=== PATIENT | male | born 1935 | race Caucasian/White ===

== ENCOUNTER 2022-05-15 02:49 | Emergency (ER) | payer OTHER ==
[~2022-05-15] VITALS: Ht 170.2 cm; Wt 70.3 kg
[2022-05-15 03:15] LABS: BASOPHILS ABSOLUTE AUTO 0.04 K/mm3 (0.00-0.23); BASOPHILS PERCENT AUTO 1 % (0-2); EOSINOPHILS ABSOLUTE AUTO 0.07 K/mm3 (0.00-0.68); EOSINOPHILS PERCENT AUTO 1 % (0-6); Hematocrit 35.2 % (37.0-53.0); Hemoglobin 11.9 g/dL (13.5-17.5); IMMATURE GRAN ABSOLUTE AUTO 0.07 K/mm3 (0.00-0.10); IMMATURE GRAN PERCENT AUTO 1 % (0-1); LYMPHOCYTES ABSOLUTE AUTO 0.62 K/mm3 (0.84-5.20); LYMPHOCYTES PERCENT AUTO 10 % (21-46); MONOCYTES ABSOLUTE AUTO 0.71 K/mm3 (0.16-1.47); MONOCYTES PERCENT AUTO 11 % (4-13); Mean Corpuscular HGB 29.7 pg (26.0-34.0); Mean Corpuscular HGB Conc 33.8 g/dL (31.5-36.5); Mean Corpuscular Volume 88 fL (80-100); Mean Platelet Volume 9.2 fL (9.1-12.4); NEUTROPHILS PERCENT AUTO 77 % (41-73); Platelet Count 201 K/mm3 (150-400); RDW Coefficient Variation 15.6 % (11.7-14.2); RDW Standard Deviation 50.4 fL (35.1-46.3); Red Blood Cell Count 4.01 M/mm3 (4.30-5.90); White Blood Cell Count 6.51 K/mm3 (4.00-11.30)
[2022-05-15 03:28] LABS: Albumin, Blood 3.2 g/dL (3.4-5.0); Albumin/Globulin Ratio 1.1 (0.8-1.8); Bilirubin, Total 0.3 mg/dL (0.1-1.0); Bun/Creatinine Ratio 20.5 (12.0-20.0); Calcium, Blood 9.6 mg/dL (8.5-10.1); Creatinine, Blood 1.22 mg/dL (0.60-1.20); Globulin, Blood 2.9 g/dL (2.2-4.0); Potassium, Blood 3.9 mmol/L (3.5-5.5); Total Protein, Blood 6.1 g/dL (6.4-8.2)
[2022-05-15 03:34] LABS: Source, Urine Clean Catch
[2022-05-15 03:36] LABS: Bilirubin, Urine Neg (Neg); Blood, Urine Neg (Neg); Glucose Qualitative, Urine Neg (Neg); Ketones, Urine Neg (Neg); Leukocyte Esterase, Urine Neg (Neg); Nitrite, Urine Neg (Neg); Protein, Urine 1+ (Neg); Specific Gravity, Urine 1.015 (1.003-1.022); Urobilinogen, Urine NORM (Normal)
[2022-05-15 03:40] LABS: Appearance, Urine Clear (Clear); Color, Urine Yellow (P-Yellow)
[2022-05-15 03:56] LABS: Influenza A, PCR NEGATIVE (NEGATIVE); Influenza B, PCR NEGATIVE (NEGATIVE); Resp Syncytial Virus, PCR NEGATIVE (NEGATIVE); SARS-Cov-2 (COVID-19) PCR, MMC NEGATIVE (NEGATIVE)
[2022-05-15] MEDS ORDERED: MECL25 PO (06:21)
[2022-05-16] MEDS ORDERED: AMLO10 PO
[2022-05-16] MEDS ORDERED: Aspir 8181 MG PO
[2022-05-16] MEDS ORDERED: ERGO400 PO (00:01)
[2022-05-16] MEDS ORDERED: CYCL0.05OP BOTHEYES (00:01)
[2022-05-16] MEDS ORDERED: DICLOFENAC SOD100 G1 TOP (00:02)
[2022-05-16] MEDS ORDERED: DOXA2 PO (00:03)
[2022-05-16] MEDS ORDERED: DOCU100 PO (00:03)
[2022-05-16] MEDS ORDERED: LOSARTAN-HCTZ1 EACH PO (00:03)
[2022-05-16] MEDS ORDERED: NIAC500 PO (00:04)
[2022-05-16] MEDS ORDERED: METF500 PO (00:04)
[2022-05-16] MEDS ORDERED: MULVITA PO (00:04)
[2022-05-16] MEDS ORDERED: OCULAR LUBRICANT BOTHEYES (00:09)
[2022-05-16] MEDS ORDERED: DEXTRAN/GLYCER/HYPRO BOTHEYES (00:09)
[2022-05-16] MEDS ORDERED: XARELTO2.5 M1 PO (00:10)
[2022-05-16] MEDS ORDERED: SOLI5 PO (00:10)
[2022-05-16] MEDS ORDERED: OMEP20ER PO (00:10)
[2022-05-16] MEDS ORDERED: TUCKS1 EACH TOP (00:11)
== END 2022-05-15 06:38 | disposition home or self-care (01) ==
LOC: ER 02:49
PROVIDERS: Emergency Medicine
DX: R42 Dizziness and giddiness (principal); R50.9 Fever, unspecified; K21.9 Gastro-esophageal reflux disease without esophagitis; I10 Essential (primary) hypertension; E11.9 Type 2 diabetes mellitus without complications; Z20.822 Contact with and (suspected) exposure to COVID-19; Z79.899 Other long term (current) drug therapy
CPT/HCPCS: 0241U; 36415; 70450; 80053; 85025; 93005; 93010; A9270; J7030

== ENCOUNTER 2022-05-15 13:02 | Inpatient (IN) | payer OTHER ==
[~2022-05-15] VITALS: Ht 170.2 cm; Wt 70.0 kg
[~2022-05-15 13:02] MED LIST: MECL25 PO
[2022-05-15 16:17] LABS: CPK Creatine Kinase 240 U/L (39-308)
[2022-05-15 16:20] LABS: Creatine Kinase MB <1.0 ng/mL (0.0-3.6); Creatine Kinase MB Index Unable to Calculate (0.0-4.0)
[2022-05-16] MEDS ORDERED: AMLO10 PO
[2022-05-16] MEDS ORDERED: Aspir 8181 MG PO
[2022-05-16] MEDS ORDERED: ERGO400 PO (00:01)
[2022-05-16] MEDS ORDERED: CYCL0.05OP BOTHEYES (00:01)
[2022-05-16] MEDS ORDERED: DICLOFENAC SOD100 G1 TOP (00:02)
[2022-05-16] MEDS ORDERED: DOXA2 PO (00:03)
[2022-05-16] MEDS ORDERED: LOSARTAN-HCTZ1 EACH PO (00:03)
[2022-05-16] MEDS ORDERED: DOCU100 PO (00:03)
[2022-05-16] MEDS ORDERED: METF500 PO (00:04)
[2022-05-16] MEDS ORDERED: MULVITA PO (00:04)
[2022-05-16] MEDS ORDERED: NIAC500 PO (00:04)
[2022-05-16] MEDS ORDERED: OCULAR LUBRICANT BOTHEYES (00:09)
[2022-05-16] MEDS ORDERED: DEXTRAN/GLYCER/HYPRO BOTHEYES (00:09)
[2022-05-16] MEDS ORDERED: SOLI5 PO (00:10)
[2022-05-16] MEDS ORDERED: XARELTO2.5 M1 PO (00:10)
[2022-05-16] MEDS ORDERED: OMEP20ER PO (00:10)
[2022-05-16] MEDS ORDERED: TUCKS1 EACH TOP (00:11)
[2022-05-16 05:54] LABS: BASOPHILS ABSOLUTE AUTO 0.06 K/mm3 (0.00-0.23); BASOPHILS PERCENT AUTO 1 % (0-2); EOSINOPHILS ABSOLUTE AUTO 0.02 K/mm3 (0.00-0.68); EOSINOPHILS PERCENT AUTO 0 % (0-6); Hematocrit 33.8 % (37.0-53.0); Hemoglobin 11.3 g/dL (13.5-17.5); IMMATURE GRAN ABSOLUTE AUTO 0.06 K/mm3 (0.00-0.10); IMMATURE GRAN PERCENT AUTO 1 % (0-1); LYMPHOCYTES ABSOLUTE AUTO 0.59 K/mm3 (0.84-5.20); LYMPHOCYTES PERCENT AUTO 12 % (21-46); MONOCYTES ABSOLUTE AUTO 0.36 K/mm3 (0.16-1.47); MONOCYTES PERCENT AUTO 8 % (4-13); Mean Corpuscular HGB 29.1 pg (26.0-34.0); Mean Corpuscular HGB Conc 33.4 g/dL (31.5-36.5); Mean Corpuscular Volume 87 fL (80-100); Mean Platelet Volume 9.5 fL (9.1-12.4); NEUTROPHILS ABSOLUTE AUTO 3.65 K/mm3 (1.96-9.15); NEUTROPHILS PERCENT AUTO 77 % (41-73); Platelet Count 178 K/mm3 (150-400); RDW Coefficient Variation 15.7 % (11.7-14.2); RDW Standard Deviation 49.4 fL (35.1-46.3); Red Blood Cell Count 3.88 M/mm3 (4.30-5.90); White Blood Cell Count 4.74 K/mm3 (4.00-11.30)
--- NOTE | 2022-05-16 06:37 | NUR ---
A/OX3; POOR HISTORIAN, FORGETFUL. [place]. CALM/ COOPERATIVE. C/O HEADACHE; PRN TYLENOL ORDERED - EFFECTIVE PER PATIENT. WEAK AND NOT OOB FOR THIS RN; WALKS AND GOES BOWLING AT BASELINE (LAST WEEK PER REPORT). TELE: SR WITH HR IN 70's. RED BLANCHABLE COCCYX; REPOSITIONING ENCOURAGED. BED ALARM SET. CALL LIGHT IN REACH; ENCOURAGED TO MAKE NEEDS KNOWN.
[2022-05-16 08:03] LABS: Albumin, Blood 2.7 g/dL (3.4-5.0); Albumin/Globulin Ratio 1.1 (0.8-1.8); Bilirubin, Total 0.5 mg/dL (0.1-1.0); Bun/Creatinine Ratio 16.2 (12.0-20.0); Calcium, Blood 8.6 mg/dL (8.5-10.1); Creatinine, Blood 1.17 mg/dL (0.60-1.20); Globulin, Blood 2.5 g/dL (2.2-4.0); Potassium, Blood 3.1 mmol/L (3.5-5.5); Total Protein, Blood 5.2 g/dL (6.4-8.2)
--- NOTE | 2022-05-16 10:48 | NUR ---
RN NOTE MR GUILLEN IS ABLE TO ANSWER ALL ORIENTATION QUESTIONS, HE IS [place] FORTE. WHEN HIS FAMILY ARRIVED THEY SAID THAT HIS MENTAL STATUS IS BACK TO BASELINE. 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 A LOT OF GENERALISED WEAKNESS AND STILL C/O DIZZYNESS. HE HAS A HEADACHE THAT HE HAS HAD SINCE YESTERDAY THAT DECREASED WITH TYLENOL (STILL THERE). UNABLE TO LIFT HIS BODY UP TO GET HIGHER UP IN BED BY HIMSELF. SEEN BY PHYSICAL THERAPIST WHO RECOMMENDED 2 PERSON ASSIST TO CHAIR OR BSC. CONDOM CATH IN PLACE - PT SAID HE'S HAD DRIBBLING INCONTINENCE FOR 1.5YRS. TELE ON; SR. ONE EPISODE OF HTN RECORDED THIS AM, REPEAT BP IN NORMAL RANGE. BED LOW, CALL LIGHT IN REACH, BED ALARM ON.
--- NOTE | 2022-05-16 12:31 | NUR ---
RN NOTE PT C/O 04/05 POSTERIOR HEADACHE. DENIES NAUSEA, NO VISION CHANGES, STILL DIZZY PER PT. DR ORTIZ CALLED AND UPDATED. SHE IS PUTTING IN MEDICATION ORDERS.
--- NOTE | 2022-05-16 16:40 | NUR ---
SHIFT SUMMARY MR GUILLEN IS ABLE TO ANSWER ORIENTATION QUESTIONS AND IS BACK TO BASELINE MENTAL STATUS PER FAMILY TODAY. DID HAVE FRONTAL AND POSTERIOR HEADACHES WHICH HAVE DECREASED AFTER TYLENOL AND TRAMADOL. HE SAID HE FEELS MUCH BETTER. UP TO CHAIR WITH 2 PERSON ASSIST AND HAS WORKED WITH PT TODAY. ON TELEMETRY - NO CALLS FROM [employer] TEAMMATE. IVF COMPLETED AND PT TOLERATING PO FLUIDS. BED LOW, CALL LIGHT IN REACH, BED ALARM ON.
--- NOTE | 2022-05-16 18:51 | NUR ---
RN NOTE PT HAD ANOTHER POSTERIOR HEADACHE, DOWN TO 3/10 POST TYLENOL.
--- NOTE | 2022-05-16 20:27 | NUR ---
AWAKENED WHEN NURSE ENTERED ROOM. ALERT AND ORIENTED. CALL LIGHT IN REACH. DENNIED PAIN AND LOSS PF FEELING. WILL MONITOR
[2022-05-17 05:47] LABS: BASOPHILS ABSOLUTE AUTO 0.04 K/mm3 (0.00-0.23); BASOPHILS PERCENT AUTO 1 % (0-2); EOSINOPHILS ABSOLUTE AUTO 0.21 K/mm3 (0.00-0.68); EOSINOPHILS PERCENT AUTO 4 % (0-6); Hematocrit 34.8 % (37.0-53.0); Hemoglobin 11.4 g/dL (13.5-17.5); IMMATURE GRAN ABSOLUTE AUTO 0.06 K/mm3 (0.00-0.10); IMMATURE GRAN PERCENT AUTO 1 % (0-1); LYMPHOCYTES ABSOLUTE AUTO 1.17 K/mm3 (0.84-5.20); LYMPHOCYTES PERCENT AUTO 22 % (21-46); MONOCYTES ABSOLUTE AUTO 0.61 K/mm3 (0.16-1.47); MONOCYTES PERCENT AUTO 11 % (4-13); Mean Corpuscular HGB 28.7 pg (26.0-34.0); Mean Corpuscular HGB Conc 32.8 g/dL (31.5-36.5); Mean Corpuscular Volume 88 fL (80-100); Mean Platelet Volume 9.3 fL (9.1-12.4); NEUTROPHILS ABSOLUTE AUTO 3.29 K/mm3 (1.96-9.15); NEUTROPHILS PERCENT AUTO 61 % (41-73); Platelet Count 179 K/mm3 (150-400); RDW Coefficient Variation 15.9 % (11.7-14.2); RDW Standard Deviation 51.4 fL (35.1-46.3); Red Blood Cell Count 3.97 M/mm3 (4.30-5.90); White Blood Cell Count 5.38 K/mm3 (4.00-11.30)
[2022-05-17 06:11] LABS: Albumin, Blood 2.6 g/dL (3.4-5.0); Anion Gap 6 mmol/L (6-16); Blood Urea Nitrogen 19 mg/dL (8-24); Bun/Creatinine Ratio 16.1 (12.0-20.0); CO2, Blood 28 mmol/L (21-32); Calcium, Blood 8.9 mg/dL (8.5-10.1); Chloride, Blood 104 mmol/L (98-108); Creatinine, Blood 1.18 mg/dL (0.60-1.20); Glomerular Filtration Rate 61 (60-); Glucose, Blood 156 mg/dL (70-99); Phosphorus, Blood 2.5 mg/dL (2.5-4.9); Potassium, Blood 3.7 mmol/L (3.5-5.5); Sodium, Blood 138 mmol/L (136-145)
--- NOTE | 2022-05-17 07:35 | NUR ---
RECRUITMENT SPECIALIST SUMMARY HAS BEEN RESTING QUIETLY AT INTERVALS THROUGH NOCT. TOLERATING MEDS WELL. MED TELE REPORTED A FEW RUNS OF TRIGEMINY. SEE DOC FLOW SHEETS. ASYMPTOMATIC. DENIED PAIN. ALERT. NEURO CHECKS WNL. DENIED LOSS OF FEELING. CALL LIGHT IN REACH. WILL CONTINUE TO MONITOR
--- NOTE | 2022-05-17 15:14 | NUR ---
pt up in chair did well with physical therapy. Pt has mild headache he has had one for the past week. He feels sometimes a little unsteady. HE has been for the past few months having trouble with his hip and ambulation has been more diffficult. He is frustrated at not being active. Pt has had his medications adjusted for worsening incontinence. He is now also seeing a kidney doctor. He had seveal questions about what a kidney doctor does and manages. Pt gets most of his care throught the [place] he has a high service connection through hearing [employer], sounds like he also had a concussion. He is going to get some physical therapy throught the [facility]. pt has been having significant constipation. We reviewed his medicaions and hydration. He also has a lot of GERD. Gave him strtegies of liquids to draing and high fiber foods. We reviewed his risk for secondary infection and frequent handwashing before and after urination. Sent for a copy of his advance directive and updated his physician. Will try to follow up with advance directive.
--- NOTE | 2022-05-17 17:04 | NUR ---
SHIFT SUMMARY PT AWAKE AT START OF SHIFT, SITTING UPRIGHT IN BED WATCHING TV. PT SITTING UP TO EOB, ON HIS OWN, FOR BREAKFAST. UP TO CHAIR LATER WITH THERAPY. DR ORTIZ IN EARLY TO SEE PT AND DISCUSS PLAN OF CARE. PT TO WORK WITH PT/OT AND DISCHARGE HOME TOMORROW. PT UP TO BTHRM ON HIS OWN LATER IN DAY USING FWW. IN TO VISIT FOR A WHILE DURING THE DAY. PLEASANT AND CO-OP WITH CARE. DENIED FURTHER NEEDS AT THIS TIME. CALL LT IN REACH.
--- NOTE | 2022-05-18 04:13 | NUR ---
SHIFT SUMMARY ADMITTED FOR LEFT SIDED BRONCHITIS/PNEUMONIA. FULL CODE. HOPEFUL FOR DC HOME TODAY. IV ANTIB RX ARE SCHEDULED. TELEMETRY: NSR @ 94 BPM. ACHS CHEMSTICKS, LOW SS. ADA DIET. HE IS ON XARELTO. LUNGS ARE CLEAR. STANDBY ASSIST W/FWW - BRP. ON RA. PHYSICAL & OCCUPATIONAL THERAPIES ASSISTING. A&O X4.
[2022-05-18] MEDS ORDERED: VISBIOME 112.51 EACH PO (10:56)
[2022-05-18] MEDS ORDERED: AZIT250 PO (10:57)
[2022-05-18] MEDS ORDERED: CEPH500 PO (10:57)
[2022-05-18] MEDS ORDERED: CYCL0.05OP BOTHEYES (10:58)
--- NOTE | 2022-05-18 12:44 | NUR ---
PT AWAKE AT START OF SHIFT, WATCHING TV. UP TO EOB TO EAT BREAKFAST. DR ORTIZ IN TO SEE PT AND DISCUSS PLAN OF CARE. PT SHOWING LOW GRADE TEMP; RM WARM WITH DOOR SHUT. HEAT DECREASED AND DOOR OPEN. TYLENOL GIVEN PER EMAR AND DR ORTIZ'S ORDER. GUILLAUME SHOWING 98.8. D/C ORDERS PLACED. PT UP IN AND WALKING HALLS WITH THERAPY THIS AM. PT'S HERE LATER TO TAKE PT HOME. [facility]. D/C INSTRUCTIONS DISCUSSED WITH PT AND ; VERBALIZED UNDERSTANDING. PT ASSISTED OUT TO 'S CAR VIA W/C.
== END 2022-05-18 11:37 | disposition home or self-care (01) | DRG 871 ==
LOC: ER 13:02 → MEDS 20:52
PROVIDERS: Emergency Medicine; Family Medicine; ADMIT Internal Medicine
DX: A41.9 Sepsis, unspecified organism (principal); J18.0 Bronchopneumonia, unspecified organism; E87.1 Hypo-osmolality and hyponatremia; J40 Bronchitis, not specified as acute or chronic; E87.6 Hypokalemia; K21.9 Gastro-esophageal reflux disease without esophagitis; Z51.5 Encounter for palliative care; D63.1 Anemia in chronic kidney disease; I12.9 Hypertensive chronic kidney disease with stage 1 through stage 4 chronic kidney disease, or unspecified chronic kidney disease; E11.22 Type 2 diabetes mellitus with diabetic chronic kidney disease; N18.2 Chronic kidney disease, stage 2 (mild); R26.2 Difficulty in walking, not elsewhere classified; Z98.890 Other specified postprocedural states; Z20.822 Contact with and (suspected) exposure to COVID-19; Z79.899 Other long term (current) drug therapy
CPT/HCPCS: 36415; 70551; 71045; 74177; 80053; 80069; 82550; 82553; 82947; 83605; 83880; 84145; 84484; 85025; 87040; 93005; 93010; 96361; 96365; 96367; 96372-59; 97110; 97112; 97116; 97161; 97166; 97530; 97535; 99285-25; A9270; J0456; J0696; J1650; J7030; J7050; Q9967

== ENCOUNTER 2023-08-22 05:49 | Day surgery (SDC) | payer OTHER ==
[2023-08-22] VITALS (16 sets, daily range): BP systolic 109–170; BP diastolic 48–118
[~2023-08-22] VITALS: Ht 165.1 cm; Wt 68.8 kg
[~2023-08-22 05:49] MED LIST changes: +ALLO300 PO; +AMLO10 PO; +AMLO5 PO; +AZIT250 PO; +Aspir 8181 MG PO; +CEPH500 PO; +CYCL0.05OP BOTHEYES; +CYCL100 PO; +DEXTRAN/GLYCER/HYPRO BOTHEYES; +DICLOFENAC SOD100 G1 TOP; +DOCU100 PO; +DOXA2 PO; +Docusate Sodiu250 MG PO; +ERGO400 PO; +LACT PO; +LOSARTAN-HCTZ1 EACH PO; +METF500 PO; +MULVITA PO; +NIAC500 PO; +OCULAR LUBRICANT BOTHEYES; +OMEP20ER PO; +SOLI5; +SOLI5 PO; +TEARS NATURAL BOTHEYES; +TUCKS1 EACH TOP; +VISBIOME 112.51 EACH PO; +VITAMIN D310 MC1 PO; +Voltaren100 GM TOP; +XARELTO2.5 M1 PO; +XARELTO20 MG PO
[2023-08-22] MEDS ORDERED: Chlorhexidine Mouth Care 15 ML UDC MT SCH (06:20)
[2023-08-22] MEDS ORDERED: Lactated Ringer's 1,000 ML IV SCH ×2 (06:20→08:15)
[2023-08-22] MEDS ORDERED: NS IV SCH (06:20)
[2023-08-22] MEDS ORDERED: Ropivacaine 0.5% HCl/Pf 67.75 MG,EPINEPHrine HCL 0.25 MG,Ketorolac Tromethamine 15 MG,C... INFIL SCH (06:20)
[2023-08-22] MEDS ORDERED: CeFAZolin Sodium 2,000 MG in NS 50 ML IV SCH ×2 (06:20→15:40)
[2023-08-22] MEDS ORDERED: TRANEXAMIC ACID IV SCH (06:20)
[2023-08-22] MEDS ORDERED: OxyCODONE HCL 10 MG TABCR PO SCH (06:20)
[2023-08-22] MEDS ORDERED: CYCL0.05OP BOTHEYES (06:29)
[2023-08-22] MEDS ORDERED: DICLOFENAC SOD100 GM TP (06:29)
[2023-08-22] MEDS ORDERED: DOXA2 PO (06:30)
[2023-08-22] MEDS ORDERED: KETO.5OPSO BOTHEYES (06:31)
[2023-08-22] MEDS ORDERED: EZET10 PO (06:31)
[2023-08-22] MEDS ORDERED: LEVE500 PO (06:33)
[2023-08-22] MEDS ORDERED: MULVITA PO (06:33)
[2023-08-22] MEDS ORDERED: ARTIFICIAL TEA1 EAC1 (06:34)
[2023-08-22] MEDS ORDERED: GENTEAL TEARS SE8 ML (06:35)
[2023-08-22] MEDS ORDERED: MIRALAX17 GM PO (06:35)
[2023-08-22] MEDS ORDERED: GENTEAL TEARS S10 GM OP (06:35)
[2023-08-22] MEDS ORDERED: SULFAMETHOXAZOL20 M1 PO (06:36)
[2023-08-22] MEDS ORDERED: SOLI5 (06:36)
[2023-08-22] MEDS ORDERED: PREPARATION H1 EAC2 TP (06:37)
[2023-08-22] MEDS ORDERED: propofoL 0 ML IV ONE (07:04)
[2023-08-22] MEDS ORDERED: FentaNYL Citrate 50 MCG/ML 2 ML Injection ONE ×2 (07:04→09:43)
[2023-08-22] MEDS ORDERED: Phenylephrine HCl 100 MCG/ML-NS 10MLSYR (1MG/10ML) ONE (07:05)
[2023-08-22] MEDS ORDERED: Dexamethasone Sod Phos 10 MG/ML 1ML VIAL ONE (07:05)
[2023-08-22] MEDS ORDERED: Ondansetron HCl 2 MG / ML 2ML Vial ONE (07:05)
[2023-08-22] MEDS ORDERED: Etomidate 2MG / ML 10ML Vial ONE (07:34)
--- NOTE | 2023-08-22 07:34 | NUR ---
[address] PT [address]IES REVIEWED WITH DR VELOZ. PT MEDICATIONS REVIEWED WITH DR ROBLEDO. PT AND FAMILY BROUGHT LIST OF MEDICATIONS WHICH WERE UPDATED INTO SYSTEM, BUT PT AND FAMILY ARE POOR HISTORIANS ON WHEN MEDICATIONS WERE LAST TAKEN. Ambulatory in Day Surgery. History, Chart, Medications and Allergies reviewed before start of procedure. Lungs clear T/O to Auscultation. Patient confirms NPO status and agrees with scheduled surgery. Pre-Op teaching done. Pt verbalizes understanding. PT BELONGINGS PLACED UNDERNEATH GURNEY FOR SAFEKEEPING.
[2023-08-22] MEDS ORDERED: propofoL 20 ML IV ONE (07:40)
[2023-08-22] MEDS ORDERED: Metoclopramide HCl 5MG / ML 2ML Vial ONE (08:03)
[2023-08-22] MEDS ORDERED: FLU VACC QS2023-24(6MOS UP)/PF 60 MCG/0.5 ML SYRINGE IM SCH (08:10)
[2023-08-22] MEDS ORDERED: DiphenhydrAMINE HCL 25 MG Cap PO PRN (08:10)
[2023-08-22] MEDS ORDERED: HYDROmorphone HCl/Pf 1MG SYR IV PRN (08:15)
[2023-08-22] MEDS ORDERED: Metoclopramide HCl 5MG / ML 2ML Vial IV PRN (08:15)
[2023-08-22] MEDS ORDERED: Ondansetron HCl 2 MG / ML 2ML Vial IV PRN (08:15)
[2023-08-22] MEDS ORDERED: Magnesium Hydroxide Conc 10 ML UDC PO PRN (08:15)
[2023-08-22] MEDS ORDERED: OxyCODONE HCL 5 MG TAB PO PRN ×2 (08:15→08:20)
[2023-08-22] MEDS ORDERED: Bisacodyl 10 MG Supp PR PRN (08:20)
[2023-08-22] MEDS ORDERED: Prochlorperazine Edisylate 10 mg Vial IV PRN (08:20)
[2023-08-22] MEDS ORDERED: Promethazine HCl 25 MG Tab PO PRN (08:20)
[2023-08-22] MEDS ORDERED: HYDROmorphone HCl/Pf 1MG SYR ONE (08:28)
[2023-08-22] MEDS ORDERED: [UNRECOGNIZED DRUG - OTHER] BOTHEYES PRN (08:40)
[2023-08-22] MEDS ORDERED: Ketorolac 0.5% Opth Soln BTL BOTHEYES SCH (09:00)
[2023-08-22] MEDS ORDERED: Glycopyrrolate 0.2 MG/ML 5ML VIAL ONE (09:31)
[2023-08-22] MEDS ORDERED: Rocuronium Bromide 10 MG/ML 5ML Injection IV ONE (09:31)
[2023-08-22] MEDS ORDERED: Ketorolac Tromethamine 15mg Vial IV SCH (12:00)
[2023-08-22] MEDS ORDERED: MetFORMIN HCl 500 mg PO SCH (17:00)
--- NOTE | 2023-08-22 18:04 | NUR ---
SHIFT SUMMARY PT A&OX4, VSS/RA/BLACKFEET(AIDS AT HOME), AISSATOU PO, VOIDING, AMB 1 PP MIN ASSIST W/FWW GB/UP TO CHAIR/PHYSICAL THERAPY EVAL'D, PAIN MANAGED WITH TORADOL. WILL REPORT TO ONCOMING NOC RN.
[2023-08-22] MEDS ORDERED: LevETIRAcetam 500 MG Tab PO SCH (21:00)
[2023-08-22] MEDS ORDERED: Docusate Sodium 100 MG Cap PO SCH (21:00)
[2023-08-22] MEDS ORDERED: EYE BOTHEYES SCH (21:00)
[2023-08-22] MEDS ORDERED: Doxazosin Mesylate 2 MG Tab PO SCH (21:00)
[2023-08-22] MEDS ORDERED: CYCLOSPORINE 0.05% BOTHEYES SCH (21:00)
[2023-08-23 03:30] VITALS: BP 109/53
[2023-08-23 05:19] LABS: BASOPHILS ABSOLUTE AUTO 0.02 K/mm3 (0.00-0.23); BASOPHILS PERCENT AUTO 0 % (0-2); EOSINOPHILS PERCENT AUTO 0 % (0-6); Hemoglobin 8.5 g/dL (13.5-17.5); IMMATURE GRAN ABSOLUTE AUTO 0.05 K/mm3 (0.00-0.10); IMMATURE GRAN PERCENT AUTO 0 % (0-1); LYMPHOCYTES ABSOLUTE AUTO 0.87 K/mm3 (0.84-5.20); LYMPHOCYTES PERCENT AUTO 6 % (21-46); MONOCYTES ABSOLUTE AUTO 1.38 K/mm3 (0.16-1.47); MONOCYTES PERCENT AUTO 9 % (4-13); Mean Corpuscular HGB 29.2 pg (26.0-34.0); Mean Corpuscular HGB Conc 32.7 g/dL (31.5-36.5); Mean Corpuscular Volume 89 fL (80-100); Mean Platelet Volume 9.2 fL (9.1-12.4); NEUTROPHILS PERCENT AUTO 85 % (41-73); Platelet Count 178 K/mm3 (150-400); RDW Coefficient Variation 15.4 % (11.7-14.2); RDW Standard Deviation 50.4 fL (35.1-46.3); Red Blood Cell Count 2.91 M/mm3 (4.30-5.90); White Blood Cell Count 15.62 K/mm3 (4.00-11.30)
--- NOTE | 2023-08-23 05:39 | NUR ---
SHIFT SUMMARY A&OX4, RA, VSS, PAIN WNL, SBA W FWW, TOLERATING PO, VOIDING WNL, DRSG C/D/I, POLAR PACK/SCD'S IN PLACE, RESTING QUIETLY IN BED, CALL LIGHT IN REACH
[2023-08-23] MEDS ORDERED: Omeprazole 20 MG CapCR PO SCH (06:00)
[2023-08-23 06:03] LABS: Bun/Creatinine Ratio 15.5 (12.0-20.0); Calcium, Blood 9.1 mg/dL (8.5-10.1); Creatinine, Blood 1.74 mg/dL (0.60-1.20); Magnesium, Blood 1.9 mg/dL (1.6-2.4); Potassium, Blood 3.9 mmol/L (3.5-5.5)
[2023-08-23 07:09] VITALS: BP 123/59
[2023-08-23] MEDS ORDERED: Polyethylene Glycol 3350 17 gm PO SCH (09:00)
[2023-08-23] MEDS ORDERED: Allopurinol 300 MG Tab PO SCH (09:00)
[2023-08-23] MEDS ORDERED: Cholecalciferol 1000 Unit Tablet (=25MCG) PO SCH (09:00)
[2023-08-23] MEDS ORDERED: Ezetimibe 10 MG Tab PO SCH (09:00)
[2023-08-23] MEDS ORDERED: Trospium Chloride 20 MG Tab PO SCH (09:00)
[2023-08-23] MEDS ORDERED: AmLODIPine Besylate 5 MG Tab PO SCH (09:00)
[2023-08-23] MEDS ORDERED: Losartan/HCTZ 50-12.5 TAB PO SCH (09:00)
[2023-08-23 09:45] VITALS: BP 117/52
--- NOTE | 2023-08-23 09:56 | NUR ---
08/23/23 0956 Milagros Villaseñor VERIFICATIONS: EDIT CHART.
[2023-08-23] MEDS ORDERED: Rivaroxaban 10 MG Tab PO SCH (10:00)
--- NOTE | 2023-08-23 10:19 | NUR ---
DISCHARGED PLACED AQUACEL OVER EXOFIN PRIOR TO DC. PROVIDED AQUACEL DRESSINGS FOR PT TO TAKE HOME. DC'D IV, CATHETER INTACT. VSS. REVIEWED DC INSTRUCTIONS W/PT; VERBALIZED UNDERSTANDING. PT LEFT UNIT IN WC W/POSSESSIONS, POLAR PACK, DC PAPERWORK IN HAND, ACCOMPANIED BY SPOUSE.
== END 2023-08-23 10:00 | disposition home or self-care (01) ==
LOC: ORSCMMR 05:49 → ORD 07:30 → SURS 10:20 → ORSCMMR 08-23 10:00
PROVIDERS: Orthopaedic Surgery
PROC: 0SRB0JA Replacement of Left Hip Joint with Synthetic Substitute, Uncemented, Open Approach (ICD-10-PCS; principal; 2023-08-22 07:30)
DX: M16.12 Unilateral primary osteoarthritis, left hip (principal); E11.22 Type 2 diabetes mellitus with diabetic chronic kidney disease; I12.9 Hypertensive chronic kidney disease with stage 1 through stage 4 chronic kidney disease, or unspecified chronic kidney disease; N18.9 Chronic kidney disease, unspecified; I48.91 Unspecified atrial fibrillation; Z79.01 Long term (current) use of anticoagulants; E78.5 Hyperlipidemia, unspecified; Z87.891 Personal history of nicotine dependence; Z79.899 Other long term (current) drug therapy; Z86.73 Personal history of transient ischemic attack (TIA), and cerebral infarction without residual deficits; Z79.84 Long term (current) use of oral hypoglycemic drugs
CPT/HCPCS: 36415; 72170; 80048; 82947; 83735; 85025; 97110; 97116; 97162; 97530; A9270; C1713; C1776; J0171; J0690; J0735; J1100; J1170; J1885; J2371; J2405; J2704; J2765; J2795; J3010; J7120

== ENCOUNTER 2024-12-27 07:08 | Day surgery (SDC) | payer OTHER ==
[2024-12-27] VITALS (11 sets, daily range): BP systolic 150–197; BP diastolic 63–85
[~2024-12-27] VITALS: Ht 167.6 cm; Wt 66.0 kg
[~2024-12-27 07:08] MED LIST changes: +ARTIFICIAL TEA1 EAC1; +Acetaminophen650 M1 PO; +CYCLOSPORINE PO; +DICLOFENAC SOD100 GM TP; +EFUDEX40 GM TOP; +ELIQUIS5 M2 PO; +EZET10 PO; +GENTEAL TEARS S10 GM OP; +GENTEAL TEARS SE8 ML; +KETO.5OPSO BOTHEYES; +LEVE500 PO; +LIDO700A20 TOP; +MIRALAX17 GM PO; +PREPARATION H1 EAC2 TP; +Retin-A20 GM TP; +SULFAMETHOXAZOL20 M1 PO; +Triamcinolone A15 G2 TOP
[2024-12-27] MEDS ORDERED: NS 500 ML IV ONE (07:11)
[2024-12-27] MEDS ORDERED: Nitroglycerin 2 MG/20 ML BTL ONE (07:11)
[2024-12-27] MEDS ORDERED: Heparin Sodium 1000 Units/ML 10ML MDV ONE ×2 (07:11→07:49)
[2024-12-27] MEDS ORDERED: NS 1,000 ML IV ONE ×2 (07:11→07:49)
[2024-12-27] MEDS ORDERED: Midazolam HCl 1MG / ML 2ML Vial ONE ×2 (08:33→08:51)
[2024-12-27] MEDS ORDERED: FentaNYL Citrate 50 MCG/ML 2 ML Injection ONE ×2 (08:33→09:11)
--- NOTE | 2024-12-27 13:00 | NUR ---
PATIENT RETURNED EARLIER FROM [facility] [facility], ARRIVED LATER AT BEDSIDE, SITE INTACT TO LEFT FEMORAL, DISCUSSED STENT PLACEMENT WITH PATIENT/, AND PLAN FOR D/C. D/C INSTRUCTIONS DISCUSSED, MEDICATIONS LIST AND HOLDING METFORMIN ALONG WITH MONITORING SITE AND RESUMING MEDICATIONS AND FOLLOWING UP WITH PROVIDER, NO QUESTIONS OR CONCERNS, DRESSED, IV REMOVED, LEFT VIA WHEELCHAIR WITH AT 1300, CALL OR RETURN IF CONCERNS.
== END 2024-12-27 13:00 | disposition home or self-care (01) ==
LOC: MHTC 07:08
DX: E11.51 Type 2 diabetes mellitus with diabetic peripheral angiopathy without gangrene (principal); I70.221 Atherosclerosis of native arteries of extremities with rest pain, right leg; I48.21 Permanent atrial fibrillation; I10 Essential (primary) hypertension; E78.5 Hyperlipidemia, unspecified; K21.9 Gastro-esophageal reflux disease without esophagitis; Z79.01 Long term (current) use of anticoagulants; Z79.899 Other long term (current) drug therapy; Z87.891 Personal history of nicotine dependence; Z88.8 Allergy status to other drugs, medicaments and biological substances
CPT/HCPCS: 37226; 37228; 75716; 75774; 76937; 82947; 93005; 93010; 99152; 99153; C1725; C1760; C1769; C1874; C1887; C1894; C2623; J1644; J2250; J3010; J7030; J7050; Q9967

== ENCOUNTER 2025-01-20 07:01 | Observation (INO) | payer OTHER ==
[~2025-01-20] VITALS: Ht 165.1 cm; Wt 71.4 kg
[2025-01-20 07:37] LABS: BASOPHILS ABSOLUTE AUTO 0.03 K/mm3 (0.00-0.23); BASOPHILS PERCENT AUTO 0 % (0-2); EOSINOPHILS ABSOLUTE AUTO 0.00 K/mm3 (0.00-0.68); EOSINOPHILS PERCENT AUTO 0 % (0-6); Hematocrit 30.3 % (37.0-53.0); Hemoglobin 9.7 g/dL (13.5-17.5); IMMATURE GRAN ABSOLUTE AUTO 0.11 K/mm3 (0.00-0.10); IMMATURE GRAN PERCENT AUTO 1 % (0-1); LYMPHOCYTES ABSOLUTE AUTO 1.09 K/mm3 (0.84-5.20); LYMPHOCYTES PERCENT AUTO 7 % (21-46); MONOCYTES ABSOLUTE AUTO 1.57 K/mm3 (0.16-1.47); MONOCYTES PERCENT AUTO 10 % (4-13); Mean Corpuscular HGB Conc 32.0 g/dL (31.5-36.5); Mean Corpuscular Volume 93 fL (80-100); NEUTROPHILS ABSOLUTE AUTO 13.63 K/mm3 (1.96-9.15); NEUTROPHILS PERCENT AUTO 83 % (41-73); NRBC ABSOLUTE 0.00 K/mm3 (0.00-0.02); NRBC Auto 0.0 /100 WBC (0.0-0.2); Platelet Count 186 K/mm3 (150-400); RDW Coefficient Variation 15.2 % (11.7-14.2); RDW Standard Deviation 52.0 fL (35.1-46.3)
[2025-01-20] MEDS ORDERED: NS 1,000 ML IV SCH (07:45)
[2025-01-20] MEDS ORDERED: CefTRIAXone Sodium 1,000 MG in NS 100 ML IV ONE (07:45)
[2025-01-20 07:54] LABS: Alanine Aminotransfer (ALT/SGP 31.0 U/L (12-78); Albumin, Blood 3.0 g/dL (3.4-5.0); Albumin/Globulin Ratio 0.8 (0.8-1.8); Anion Gap 9.0 mmol/L (3-11); Aspartate Aminotrans (AST/SGOT 28.0 U/L (12-37); Bilirubin, Total 0.7 mg/dL (0.1-1.0); Blood Urea Nitrogen 33.0 mg/dL (8-24); CO2, Blood 25.0 mmol/L (21-32); Calcium, Blood 9.2 mg/dL (8.5-10.1); Chloride, Blood 106.0 mmol/L (98-108); Creatinine, Blood 1.45 mg/dL (0.60-1.20); Globulin, Blood 3.6 g/dL (2.2-4.0); Glucose, Blood 144.0 mg/dL (70-99); Potassium, Blood 3.3 mmol/L (3.5-5.5); Sodium, Blood 137.0 mmol/L (136-145); Total Protein, Blood 6.6 g/dL (6.4-8.2)
[2025-01-20 08:05] LABS: Alanine Aminotransfer (ALT/SGP 29.0 U/L (12-78); Albumin, Blood 2.7 g/dL (3.4-5.0); Albumin/Globulin Ratio 0.8 (0.8-1.8); Aspartate Aminotrans (AST/SGOT 26.0 U/L (12-37); Bilirubin, Direct 0.2 mg/dL (0.0-0.3); Bilirubin, Indirect 0.3 mg/dL (0.1-0.7); Bilirubin, Total 0.5 mg/dL (0.1-1.0); Globulin, Blood 3.2 g/dL (2.2-4.0); Magnesium, Blood 1.4 mg/dL (1.6-2.4); Phosphorus, Blood 1.6 mg/dL (2.5-4.9); Total Protein, Blood 5.9 g/dL (6.4-8.2)
[2025-01-20 08:19] LABS: Source, Urine Voided
[2025-01-20 08:22] LABS: Bilirubin, Urine Neg (Neg); Color, Urine Yellow (P-Yellow); Glucose Qualitative, Urine Neg (Neg); Ketones, Urine Neg (Neg); Leukocyte Esterase, Urine 1+ (Neg); Protein, Urine 2+ (Neg); Specific Gravity, Urine 1.020 (1.003-1.022); Urobilinogen, Urine 1+ (Normal)
[2025-01-20 08:36] LABS: Red Blood Cells, Urine 0-2 /hpf (0-2)
[2025-01-20 09:09] LABS: Influenza A, PCR NEGATIVE (NEGATIVE); Influenza B, PCR NEGATIVE (NEGATIVE); Resp Syncytial Virus, PCR NEGATIVE (NEGATIVE); SARS-Cov-2 (COVID-19) PCR, MMC NEGATIVE (NEGATIVE)
[2025-01-20] MEDS ORDERED: Magnesium Sulf 2 GM/Water 50ML 50 ML IV ONE (12:25)
[2025-01-20 13:43] VITALS: BP 128/61
[2025-01-20] MEDS ORDERED: NS 250 ML IV PRN (15:20)
[2025-01-20 15:25] VITALS: BP 145/63
[2025-01-20] MEDS ORDERED: ALLO300 PO (16:35)
[2025-01-20] MEDS ORDERED: CYCLOSPORINE1 EACH BOTHEYES (16:37)
[2025-01-20] MEDS ORDERED: LACT PO (16:42)
[2025-01-20] MEDS ORDERED: KETO.5OPSO BOTHEYES (16:42)
[2025-01-20] MEDS ORDERED: LIDO5TO TOP (16:43)
[2025-01-20] MEDS ORDERED: Hair, Skin & N1 EACH PO (16:45)
[2025-01-20] MEDS ORDERED: PREPARATION H1 EAC2 PR (16:49)
[2025-01-20] MEDS ORDERED: ARTIFICIAL TEA1 EAC1 BOTHEYES (16:50)
--- NOTE | 2025-01-20 17:16 | NUR ---
ADMIT NOTE PATIENT BROUGHT UP FROM ER VIA GURNEY. ABLE TO TRANSFER TO BED STAND-BY. MED REC BROUGHT IN BY FAMILY AND COMPLETED. IV MAG AND PO MAG RICARDO. PT A/OX4. ROOM AIR. ABLE TO MAKE NEEDS KNOWN. DR. VELASCO ORDERED TO DC PATRICK THAT WAS PLACED IN ER AND BLADDER SCAN 4 HOURS AFTER. BLADDER SCAN TIME DUE AT 1999. IV TO LAC PATENT. NO APPARENT SKIN ISSUES APART FROM SOMES SMALL SCABS AND BRUISING. PT/OT EVAL PENDING.
[2025-01-20] MEDS ORDERED: Insulin Human Lispro 100 Units/ML 3ML Syringe SC SCH (18:00)
[2025-01-20 19:42] VITALS: BP 128/56
[2025-01-20] MEDS ORDERED: Doxazosin Mesylate 8 MG TAB PO SCH (21:00)
[2025-01-20] MEDS ORDERED: Trimethoprim/Sulfamethoxazole DS Tab PO SCH (21:00)
--- NOTE | 2025-01-21 04:27 | NUR ---
SHIFT SUMMARY: PT AOX4 IND WITH URINAL, HASNT GOTTEN UP THIS EVENING BUT IS ABLE TO REPOSITION SELF IN BED. PT TOLERATING MEDICATIONS WELL. CBGS HAVE BEEN STABLE THIS EVENING DESPITE BEING REGULAR DIET. IS ABLE TO VOID WITHOUT ISSUE HAVING SEVERAL VOIDS IN THE URINAL OVERNIGHT. CALLS APPRORPIATELY AND IS ABLE TO MAKE NEEDS KNOWN. STATES TO BE FEELING MUCH BETTER THAN ON ADMISSION. PT IN BED RESTING, BED IN LOWEST POSITION, CALL LIGHT IN REACH. CONTINUING CARE.
[2025-01-21 04:28] VITALS: BP 130/58
[2025-01-21 05:48] LABS: BASOPHILS ABSOLUTE AUTO 0.04 K/mm3 (0.00-0.23); BASOPHILS PERCENT AUTO 0 % (0-2); EOSINOPHILS ABSOLUTE AUTO 0.03 K/mm3 (0.00-0.68); EOSINOPHILS PERCENT AUTO 0 % (0-6); Hematocrit 29.1 % (37.0-53.0); Hemoglobin 9.4 g/dL (13.5-17.5); IMMATURE GRAN ABSOLUTE AUTO 0.05 K/mm3 (0.00-0.10); IMMATURE GRAN PERCENT AUTO 1 % (0-1); LYMPHOCYTES ABSOLUTE AUTO 1.70 K/mm3 (0.84-5.20); LYMPHOCYTES PERCENT AUTO 16 % (21-46); MONOCYTES ABSOLUTE AUTO 1.13 K/mm3 (0.16-1.47); MONOCYTES PERCENT AUTO 11 % (4-13); Mean Corpuscular HGB Conc 32.3 g/dL (31.5-36.5); Mean Corpuscular Volume 93 fL (80-100); NEUTROPHILS ABSOLUTE AUTO 7.61 K/mm3 (1.96-9.15); NEUTROPHILS PERCENT AUTO 72 % (41-73); NRBC ABSOLUTE 0.00 K/mm3 (0.00-0.02); NRBC Auto 0.0 /100 WBC (0.0-0.2); Platelet Count 195 K/mm3 (150-400); RDW Coefficient Variation 15.3 % (11.7-14.2); RDW Standard Deviation 52.3 fL (35.1-46.3)
[2025-01-21 06:04] LABS: Alanine Aminotransfer (ALT/SGP 33.0 U/L (12-78); Albumin, Blood 2.6 g/dL (3.4-5.0); Albumin/Globulin Ratio 0.8 (0.8-1.8); Anion Gap 8.0 mmol/L (3-11); Aspartate Aminotrans (AST/SGOT 28.0 U/L (12-37); Bilirubin, Total 0.5 mg/dL (0.1-1.0); Blood Urea Nitrogen 24.0 mg/dL (8-24); CO2, Blood 26.0 mmol/L (21-32); Calcium, Blood 9.6 mg/dL (8.5-10.1); Chloride, Blood 107.0 mmol/L (98-108); Creatinine, Blood 1.26 mg/dL (0.60-1.20); Globulin, Blood 3.3 g/dL (2.2-4.0); Glucose, Blood 121.0 mg/dL (70-99); Magnesium, Blood 2.3 mg/dL (1.6-2.4); Potassium, Blood 3.7 mmol/L (3.5-5.5); Sodium, Blood 137.0 mmol/L (136-145); Total Protein, Blood 5.9 g/dL (6.4-8.2)
[2025-01-21 07:38] VITALS: BP 134/65
[2025-01-21] MEDS ORDERED: Enoxaparin 40 MG/0.4 ML SYR SC SCH (09:00)
[2025-01-21] MEDS ORDERED: Polyethylene Glycol 3350 17 gm PO ONE (11:00)
[2025-01-21] MEDS ORDERED: Polyethylene Glycol 3350 17 gm PO PRN (11:00)
[2025-01-21] MEDS ORDERED: SULTRIDS PO (14:29)
--- NOTE | 2025-01-21 15:35 | NUR ---
DISCHARGE: PT D/C @ 1445 VIA WHEELCHAIR WITH . MEDICATIONS FAXED TO DC PHARMACY. IV REMOVED BY CYTOPATHOLOGY TECHNOLOGIST W/O COMPLICATIONS. THIS RN WALKED WITH PT AROUND MEDICAL FLOOR A STAND BY nick FWW. NO COMPLICATIONS WITH WALK. NO QUESTIONS AT TIME OF D/C.
== END 2025-01-21 14:04 | disposition home or self-care (01) ==
LOC: ER 07:01 → MEDS 10:55
PROVIDERS: Student in an Organized Health Care Education/Training Program; ADMIT Hospitalist
DX: A41.9 Sepsis, unspecified organism (principal); N39.0 Urinary tract infection, site not specified; I12.9 Hypertensive chronic kidney disease with stage 1 through stage 4 chronic kidney disease, or unspecified chronic kidney disease; E11.22 Type 2 diabetes mellitus with diabetic chronic kidney disease; N18.2 Chronic kidney disease, stage 2 (mild); E83.42 Hypomagnesemia; K21.9 Gastro-esophageal reflux disease without esophagitis; E78.5 Hyperlipidemia, unspecified; E11.51 Type 2 diabetes mellitus with diabetic peripheral angiopathy without gangrene; I69.854 Hemiplegia and hemiparesis following other cerebrovascular disease affecting left non-dominant side; I69.828 Other speech and language deficits following other cerebrovascular disease; Z66 Do not resuscitate; Z95.828 Presence of other vascular implants and grafts; Z88.8 Allergy status to other drugs, medicaments and biological substances; Z79.84 Long term (current) use of oral hypoglycemic drugs; Z79.01 Long term (current) use of anticoagulants; Z79.899 Other long term (current) drug therapy
CPT/HCPCS: 36415; 51702; 80053; 80076; 81001; 82947; 83605; 83735; 84100; 85025; 87040; 87086; 87637; 93005; 93010; 96365; 96366; 96367; 97110; 97116; 97162; 97165; 97535; 99285-25; A9270; G0378; J0696; J3475; J7030; J7050

== ENCOUNTER 2025-03-08 06:53 | Day surgery (SDC) | payer OTHER ==
[~2025-03-08] VITALS: Ht 167.6 cm; Wt 67.2 kg
[2025-03-08] VITALS (13 sets, daily range): BP systolic 118–182; BP diastolic 55–71
[~2025-03-08 06:53] MED LIST changes: +ACET325 PO; +ARTIFICIAL TEA1 EAC1 BOTHEYES; +CYCLOSPORINE1 EACH BOTHEYES; +DOCU100; +Hair, Skin & N1 EACH PO; +LIDO5TO TOP; +PREPARATION H1 EAC2 PR; +SULTRIDS PO; +TEARS NATURALE BOTHEYES; +VOLTAREN ARTHRI20 GM TOP
[2025-03-08] MEDS ORDERED: NS 100 ML IV ONE (07:25)
[2025-03-08] MEDS ORDERED: NS 250 ML IV ONE (07:25)
[2025-03-08] MEDS ORDERED: NS 1,000 ML IV ONE ×2 (07:26→08:06)
[2025-03-08] MEDS ORDERED: Heparin Sodium 1000 Units/ML 10ML MDV ONE ×2 (07:26→08:06)
[2025-03-08] MEDS ORDERED: Nitroglycerin 2 MG/20 ML BTL ONE (07:26)
[2025-03-08] MEDS ORDERED: FentaNYL Citrate 50 MCG/ML 2 ML Injection ONE (08:28)
[2025-03-08] MEDS ORDERED: Midazolam HCl 1MG / ML 2ML Vial ONE (08:28)
[2025-03-08] MEDS ORDERED: HydrALAZINE HCl 20 MG / ML 1ML Vial ONE (09:08)
--- NOTE | 2025-03-08 09:49 | NUR ---
PT RETURNED TO RECOVERY ROOM IN BED. RIGHT FEMORAL GROIN SITE SOFT NON-TENDER WITH NO HEMATOMA, NO PULSATILE BLEEDING AND INTACT DRESSING. R PT PULSE DOPPLER. CALL LIGHT IN REACH.
--- NOTE | 2025-03-08 09:57 | NUR ---
NO CHANGES TO R FEM GROIN SITE.
--- NOTE | 2025-03-08 10:27 | NUR ---
groin site soft and non-tender per pt. no bleeding/hematoma noted.
--- NOTE | 2025-03-08 11:25 | NUR ---
groin site soft and non-tender per pt. no bleeding/hematoma noted. bilat pt and dp pulses present via doppler.
--- NOTE | 2025-03-08 12:18 | NUR ---
pt given dc instructions and verbalized understanding. iv out. pt changed. groin site soft and non-tender per pt. no bleeding/hematoma noted. pt refused wc. pt ambulated to [facility] w/o assistance w/ so. so to take pt home.
== END 2025-03-08 12:29 | disposition home or self-care (01) ==
LOC: MHTC 06:53
DX: E11.51 Type 2 diabetes mellitus with diabetic peripheral angiopathy without gangrene (principal); I70.223 Atherosclerosis of native arteries of extremities with rest pain, bilateral legs; I48.21 Permanent atrial fibrillation; E78.5 Hyperlipidemia, unspecified; K21.9 Gastro-esophageal reflux disease without esophagitis; I10 Essential (primary) hypertension; Z79.01 Long term (current) use of anticoagulants; Z79.899 Other long term (current) drug therapy; Z88.8 Allergy status to other drugs, medicaments and biological substances; Z87.891 Personal history of nicotine dependence; Z86.73 Personal history of transient ischemic attack (TIA), and cerebral infarction without residual deficits
CPT/HCPCS: 37226; 75625; 75716; 75774; 76937; 99152; 99153; C1725; C1760; C1769; C1874; C1887; C1894; C2623; C9772; J0360; J1644; J2250; J3010; J7030; J7050; Q9967